=== PATIENT | female | born 1970 | race Caucasian/White ===

== ENCOUNTER → 2018-02-07 | Outpatient (CLI) | payer OTHER | LOC: M.ULTRA 16:00 | DX: M79.661 Pain in right lower leg (principal) ==

== ENCOUNTER → 2018-02-14 | Outpatient (CLI) | payer OTHER | LOC: M.ULTRA 11:26 | DX: E04.1 Nontoxic single thyroid nodule (principal); N85.8 Other specified noninflammatory disorders of uterus; E78.5 Hyperlipidemia, unspecified; J30.9 Allergic rhinitis, unspecified ==